=== PATIENT | male | born 1985 | race African-American/Black ===

== ENCOUNTER 2019-08-08 01:33 | Emergency (ER) | payer OTHER ==
[~2019-08-08] VITALS: Ht 167.6 cm; Wt 80.3 kg
[~2019-08-08 01:33] MED LIST: AMOXICILLIN875 MG PO; HYDROCODONE-AC120 ML PO
[2019-08-08] MEDS ORDERED: DAY TIME COLD-237 ML (01:40)
[2019-08-08] MEDS ORDERED: NYQUIL (01:40)
[2019-08-08 02:17] VITALS: BP 131/91
== END 2019-08-08 02:15 | disposition home or self-care (01) ==
LOC: ER 01:33
DX: B34.9 Viral infection, unspecified (principal); Z90.49 Acquired absence of other specified parts of digestive tract